=== PATIENT | female | born 1995 | race African-American/Black ===

== ENCOUNTER 2019-07-29 14:43 | Emergency (ER) | payer MEDICAID ==
[~2019-07-29] VITALS: Ht 167.6 cm; Wt 85.0 kg
[2019-07-29 15:27] LABS: CHLORIDE 105 mEq/L (98-107)
[2019-07-29 15:31] LABS: ETHANOL BLOOD < 10 mg/dL
[2019-07-29] MEDS: SODIUM CHLORIDE 0.9% 1,000 ML IV ONE (15:32)
[2019-07-29 15:34] LABS: BASOPHILS % 0.5 % (0.0-2.0); EOSINOPHILS % 0.1 % (0.0-5.0); HEMATOCRIT. 38.3 % (36.0-48.0); HEMOGLOBIN. 13.1 g/dL (12.0-16.0); LYMPHOCYTES % 18.6 % (20.0-50.0); MEAN CORPUSCULAR HEMOGLOBIN 27.8 pg (28.0-32.0); MEAN CORPUSCULAR VOLUME 81.5 fL (81.0-99.0); MEAN PLATELET VOLUME 7.7 fl (7.4-10.4); MONOCYTES % 3.7 % (2.0-8.0); NEUTROPHILS % 77.1 % (40.0-76.0); PLATELET 244 x1000/uL (130-400); RED BLOOD CELL COUNT 4.71 mill/uL (4.2-5.4)
[2019-07-29 15:50] LABS: HCG SCREEN NEGATIVE
[2019-07-29 16:54] LABS: CLARITY URINE CLOUDY (CLEAR); COLOR URINE YELLOW (YELLOW); KETONES URINE 1+ (NEGATIVE); LEUKOCYTE ESTERASE URINE NEGATIVE (NEGATIVE); NITRITE URINE NEGATIVE (NEGATIVE); OCCULT BLOOD URINE NEGATIVE (NEGATIVE); PH URINE 5.5 (4.5-8.0); PROTEIN URINE NEGATIVE (NEGATIVE); SPECIFIC GRAVITY URINE 1.019 (1.005-1.030); UROBILINOGEN URINE 0.2 E.U./dL (0.2-1.0)
[2019-07-29 17:07] LABS: METHADONE URINE SCREEN NEGATIVE (NEGATIVE); OPIATES URINE SCREEN NEGATIVE (NEGATIVE); PHENCYCLIDINE URINE SCREEN NEGATIVE (NEGATIVE)
[2019-07-29 17:08] LABS: *AMPHETAMINES SCREEN URINE NEGATIVE (NEGATIVE); *BARBITURATES SCREEN URINE NEGATIVE (NEGATIVE); *BENZODIAZEPINES SCREEN URINE NEGATIVE (NEGATIVE); *COCAINE SCREEN URINE NEGATIVE (NEGATIVE)
[2019-07-29 17:17] LABS: CANNABINOID URINE SCREEN PRESUMTIVE POSITIVE (NEGATIVE)
[2019-07-29 17:33] VITALS: BP 137/67
[2019-07-29] MEDS: KETOROLAC 30MG/ML VIAL IV ONE (17:33)
[2019-07-29] MEDS: OXCARBAZEPINE 300MG TABLET PO STA (17:43)
== END 2019-07-29 19:58 | disposition home or self-care (01) ==
LOC: ER 14:43
DX: G40.909 Epilepsy, unspecified, not intractable, without status epilepticus (principal); M25.511 Pain in right shoulder; Z91.14 Patient's other noncompliance with medication regimen
CPT/HCPCS: 36415; 73030; 80053; 80305; 80320; 81003; 82962; 84703; 85025; 96374; 99284; J1885; J7030; G0480

== ENCOUNTER 2023-09-22 17:42 | Emergency (ER) | payer MEDICAID, OTHER ==
[~2023-09-22] VITALS: Ht 170.2 cm; Wt 103.0 kg
[2023-09-22 17:45] VITALS: BP 148/96; PULSE 96; RESP 16; TEMP 98.4; O2SAT 100
[2023-09-22] MEDS ORDERED: METF-873 MT (18:18)
[2023-09-22] MEDS ORDERED: [UNRECOGNIZED DRUG - REMARK] PO (18:18)
[2023-09-22] MEDS ORDERED: CLOB10TA PO (18:18)
[2023-09-22] MEDS ORDERED: CLOB10TA17 PO (18:21)
== END 2023-09-22 18:34 | disposition home or self-care (01) ==
LOC: ER 17:42
DX: R56.9 Unspecified convulsions (principal); E11.9 Type 2 diabetes mellitus without complications; Z76.0 Encounter for issue of repeat prescription
CPT/HCPCS: 99283